=== PATIENT | male | born 1955 | race Caucasian/White ===

== ENCOUNTER 2024-04-30 09:36 | Outpatient (CLI) | payer OTHER ==
[2024-04-30] MEDS ORDERED: Iopamidol 370 76% 100 ML VIAL ONE (09:58)
== END 2024-04-30 09:37 | disposition home or self-care (01) ==
LOC: CT 09:36
PROVIDERS: ATTEND Urology
DX: C61 Malignant neoplasm of prostate (principal); R31.29 Other microscopic hematuria
CPT/HCPCS: 74178; 82565; Q9967